=== PATIENT | male | born 1930 | race Caucasian/White ===

== ENCOUNTER 2019-02-20 10:51 | Observation (INO) | payer MEDICARE, OTHER ==
--- NOTE | 2019-02-20 11:26 | RADIOLOGY REPORT (SQ) ---
EXAM DESCRIPTION: CT HEAD WITHOUT COMPLETED DATE/TIME: 02/20/2019 11:16 am REASON FOR STUDY: stroke symptoms COMPARISON: None. TECHNIQUE: Axial images acquired through the brain without intravenous contrast. Images reviewed wi th bone, brain and subdural windows. Additional sagittal and coronal reconstructions were generated. Images stored on PACS. All CT scanners at this facility use dose modulation, iterative reconstruction, and/or weight based d osing when appropriate to reduce radiation dose to as low as reasonably achievable (ALARA). [facility]: Dose Right [facility]: CareDose [facility]: Dose Right [facility]: Teradose 4D [facility]: Neurotrack RADIATION DOSE: CT Rad equipment meets quality standard of care and radiation dose reduction techniq ues were employed. CTDIvol: 53.2 mGy. DLP: 1124 mGy-cm.mGy. LIMITATIONS: None. FINDINGS: VENTRICLES: Prominent. CEREBRUM: No masses. No hemorrhage. No midline shift. Areas of low density in the white matter mos t likely due to chronic micro-vascular ischemic change. No evidence for acute infarction. CEREBELLUM: No masses. No hemorrhage. No alteration of density. No evidence for acute infarction. EXTRAAXIAL SPACES: Age-related involutional change. No fluid collections. No masses. ORBITS AND GLOBE: No intra- or extraconal masses. Normal contour of globe without masses. CALVARIUM: No fracture. PARANASAL SINUSES: No fluid or mucosal thickening. SOFT TISSUES: No mass or hematoma. OTHER: No other significant finding. IMPRESSION: CHRONIC CHANGES OF ATROPHY AND MICROVASCULAR ISCHEMIA. NO ACUTE PROCESS. EVIDENCE OF ACUTE STROKE: NO. COMMENT: Pertinent positive or negative findings of the imaging study reported as a CRITICAL EXAM meena HOLLIDAY DO at11:19 on 02/20/2019. Category of Critical Exam: Code stroke. TECHNICAL DOCUMENTATION: JOB ID: [id number] Quality ID # [id number]: Final reports with documentation of one or more dose reduction techniques (e.g., Au tomated exposure control, adjustment of the mA and/or kV according to patient size, use of iterative reconstruction technique) 2010 [employer]- All Rights Reserved Reading location - IP/workstation name: [email or web address]
--- NOTE | 2019-02-20 11:30 | RADIOLOGY REPORT (SQ) ---
EXAM DESCRIPTION: CHEST SINGLE VIEW COMPLETED DATE/TIME: 02/20/2019 11:22 am REASON FOR STUDY: stroke symptoms COMPARISON: None. NUMBER OF VIEWS: One view. TECHNIQUE: Single frontal radiographic view of the chest acquired. LIMITATIONS: None. FINDINGS: LUNGS AND PLEURA: No opacities, masses or pneumothorax. No pleural effusion. MEDIASTINUM AND HILAR STRUCTURES: No masses. Contour normal. HEART AND VASCULAR STRUCTURES: Heart normal in size. Normal vasculature. BONES: No acute findings. HARDWARE: Battery pack and leads are in place. OTHER: No other significant finding. IMPRESSION: NO SIGNIFICANT RADIOGRAPHIC FINDING IN THE CHEST. TECHNICAL DOCUMENTATION: JOB ID: [id number] 1805 [employer]- All Rights Reserved Reading location - IP/workstation name: [email or web address]
[2019-02-20 11:48] LABS: INTERNATIONAL RATION (INR) 1.09; MEAN CORPUSCULAR HEMOGLOBIN 30.5 pg (27.0-33.4); MEAN CORPUSCULAR HGB CONC 33.3 g/dL (32.0-36.0); MEAN CORPUSCULAR VOLUME 92 fl (80-97); PLATELET COUNT 193 10^3/uL (150-450); PROTHROMBIN TIME 14.7 SEC (11.4-15.4); RED BLOOD COUNT 4.26 10^6/uL (4.35-5.55); RED CELL DISTRIBUTION WIDTH 20.8 % (11.5-14.0); WHITE BLOOD COUNT 16.3 10^3/uL (4.0-10.5)
[2019-02-20 11:49] LABS: PARTIAL THROMBOPLASTIN TIME 38.1 SEC (23.5-35.8)
[2019-02-20 12:05] LABS: ALANINE AMINOTRANSFERASE 22 U/L (21-72); ALBUMIN 3.8 g/dL (3.5-5.0); ALKALINE PHOSPHATASE 72 U/L (38-126); ANION GAP 10 (5-19); ASPARTATE AMINO TRANSFERASE 24 U/L (17-59); BILIRUBIN,DIRECT 0.3 mg/dL (0.0-0.4); BILIRUBIN,TOTAL 0.6 mg/dL (0.2-1.3); BLOOD UREA NITROGEN 41 mg/dL (7-20); CARBON DIOXIDE 25 mmol/L (22-30); CHLORIDE 103 mmol/L (98-107); CREATINE KINASE 44 U/L (55-170); GLUCOSE 98 mg/dL (75-110); POTASSIUM 4.6 mmol/L (3.6-5.0); SODIUM 137.8 mmol/L (137-145); TOTAL PROTEIN 6.4 g/dL (6.3-8.2)
[2019-02-20 12:17] LABS: ABSOLUTE LYMPHOCYTES# (MANUAL) 11.2 10^3/uL (0.5-4.7); ABSOLUTE MONOCYTES # (MANUAL) 0.5 10^3/uL (0.1-1.4); ABSOLUTE NEUTROPHILS# (MANUAL) 4.1 10^3/uL (1.7-8.2); BASOPHILS % (MANUAL) 1 % (0-2); EOSINOPHILS % (MANUAL) 2 % (0-6); LYMPHOCYTES % (MANUAL) 69 % (13-45); MONOCYTES % (MANUAL) 3 % (3-13); SEGMENTED NEUTROPHILS % (MAN) 25 % (42-78); TOTAL CELLS COUNTED 100
[2019-02-20 12:19] LABS: ANISOCYTOSIS 2+; OVALOCYTES SLIGHT; PLATELET COMMENT ADEQUATE; PLATELET LARGE PRESENT; POIKILOCYTOSIS SLIGHT; TOXIC VACUOLATION PRESENT
--- NOTE | 2019-02-20 12:19 | ER Document Report ---
ED Neuro Symptoms/Deficit - General Chief Complaint: S/S of Possible Stroke Stated Complaint: GENERAL WEAKNESS Time Seen by Provider: 02/20/19 11:01 Primary Care Provider: RAGHAV ROOT MD [Primary Care Provider] - Follow up as needed Notes: This is an 88-year-old male to the emergency department chief complaint of tongue feels heavy and speech is slurred. Patient states that this began about 3 hours prior to arrival. Patient on Eliquis for DVTs. Has been on dialysis recently as well. No other major symptoms. Denies any severe headache. No head trauma. No chest pain. - HPI Patient complains to provider of: Facial Droop, Speech Impairment Onset: Just prior to arrival Symptoms are: Intermittent episodes Duration: Better Quality of pain: No pain - Related Data Allergies/Adverse Reactions: gabapentin Allergy (Verified 02/20/19 11:59) quinapril [From Accupril] Allergy (Verified 02/20/19 11:59) Past Medical History - General Information source: Patient, Relative - Social History Smoking Status: Unknown if Ever Smoked Frequency of alcohol use: None Drug Abuse: None Lives with: Spouse/Significant other Family History: Reviewed & Not Pertinent Patient has suicidal ideation: No Patient has homicidal ideation: No - Past Medical History Cardiac Medical History: Reports: Hx Atrial Fibrillation, Hx Hypertension Endocrine Medical History: Reports: Hx Diabetes Mellitus Type 2 Renal/ Medical History: Denies: Hx Peritoneal Dialysis GI Medical History: Reports: Hx Gastroesophageal Reflux Disease Past Surgical History: Reports: Hx Cardiac Surgery - pacemaker, Hx Orthopedic Surgery - left knee Review of Systems - Review of Systems Notes: Constitutional: denies: Chills, Diaphoresis, Fever, Malaise, Weakness EENT: denies: Eye discharge, Blurred vision, Tearing, Double vision, Nose congestion, Nose discharge, Throat swelling, Mouth pain Cardiovascular: denies: Palpitations, Heart racing, Orthopnea, Dyspnea, Chest pain Respiratory: denies: Cough, Hurts to breathe, Wheezing, Shortness of breath Gastrointestinal: denies: Abdominal pain, Diarrhea, Nausea, Vomiting, Black stools, bright red blood in stool Genitourinary: denies: Burning, Dysuria, Discharge, Frequency, Flank pain, Hematuria Musculoskeletal: denies: Joint pain, Joint swelling, Muscle pain, Muscle stiffness, back pain Hematologic/Lymphatic: denies: Anemia, Easy bleeding, Easy bruising, Blood clots Neurological/Psychological: denies: Confusion, Dementia, Depression, Loss of consciousness. Complaining of weakness on the right of side of the face and slurred speech. Skin: No lesions, no masses, no skin breakdown, no abscesses Physical Exam - Vital signs Vitals: Pulse Ox 100 02/20/19 11:38 Interpretation: Normal - General General appearance: Appears well, Alert - HEENT Head: Normocephalic, Atraumatic Eyes: Normal Pupils: PERRL Mucous membranes: Normal Pharynx: Normal Neck: Normal Notes: Slight asymmetry at the nasolabial area on the right. No forehead involvement. Smiling seems quite symmetric. The patient's speech seems mildly slurred and difficult. - Respiratory Respiratory status: No respiratory distress Chest status: Nontender Breath sounds: Normal Chest palpation: Normal - Cardiovascular Rhythm: Regular Heart sounds: Normal auscultation Murmur: No - Abdominal Inspection: Normal Distension: No distension Bowel sounds: Normal Tenderness: Nontender Organomegaly: No organomegaly - Back Back: Normal, Nontender - Extremities General upper extremity: Normal inspection, Nontender, Normal color, Normal ROM, Normal temperature General lower extremity: Normal inspection, Nontender, Normal color, Normal ROM, Normal temperature, Normal weight bearing. No: Angelica's sign - Neurological Neuro grossly intact: Yes Cognition: Normal Orientation: AAOx4 [place] Coma Scale Eye Opening: Spontaneous [place] Coma Scale Verbal: Oriented [place] Coma Scale Motor: Obeys Commands [place] Coma Scale Total: 15 Speech: Normal Cranial nerves: Facial palsy - May be a slight right sided facial palsy. 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 No: Weakness Babinski reflex: Normal (flexor plantar) Sensory: Normal - Psychological Associated symptoms: Normal affect, Normal mood - Skin Skin Temperature: Warm Skin Moisture: Dry Skin Color: Normal Course - Re-evaluation Re-evalutation: 02/20/19 12:[address] was negative. Has a pacemaker so not a candidate for MRI. History of A. fib. On Eliquis so not a candidate for TPA. 02/20/19 13:40 Will admit to [facility] for work up - Vital Signs Vital signs: Temp Pulse Resp BP Pulse Ox 97.7 F 70 24 H 139/81 H 100 02/20/19 11:57 02/20/19 11:55 02/20/19 11:55 02/20/19 11:55 02/20/19 11:55 - Laboratory Result Diagrams: 02/20/19 11:30 02/20/19 11:30 Laboratory results interpreted by me: 02/20/19 02/20/19 11:30 11:30 APTT 38.1 H BUN 41 H Creatinine 2.55 H Est GFR ( Amer) 29 L Est GFR (Non-Af Amer) 24 L Creatine Kinase 44 L - EKG Interpretation by Me EKG shows normal: ST-T Waves Additional EKG results interpreted by me: 02/20/19 12:26 Patient has a paced ventricular rhythm. ED Alteplase Inc/Exc Criteria - Inclusion Criteria: 1: Patient presented to ED within 3 hours of acute ischemic stroke symptom onset? -: Yes 2: Did baseline CT exclude intracranial hemorrhage and/or other risk factors? -: Yes 3: Is the age of the patient 18 years of age or greater? -: Yes : If any of the above questions are answered "NO" then stop, patient is not a candidate for Alteplase, : If all of the above questions are answered "YES" then continue with Exclusion Criteria. - Exclusion Criteria: 1: Is there evidence of intracranial hemorrhage on baseline CT? -: No 2: Is there suspicion of subarachnoid hemorrhage (even if CT negative)? -: No 3: Is there a history of serious head trauma, recent previous stroke or VA within 3 months? -: No 4: Does the patient have a clinical presentation consistent with VA or post-VA pericarditis? -: No 5: Is there history of intracranial hemorrhage? -: No 6: On repeated measurement is Systolic BP greater than 185mmHg or Diastolic BP greater that 110 mmHg and is aggressive treatment needed to reduce blood pressure to these limits (e.g. constant infusion of an anti-hypertensive)? -: No 7: Did the patient awake with stroke symptoms? -: No 8: Has the patient had a lumbar puncture or an arterial puncture at a non-co mpressile site within 7 days? 9: With in the last 14 days did the patient have surgery or major trauma? -: No 10: Is the patient or less than 2 weeks? -: No 11: Was there any active bleeding or acute trauma? -: No 12: Does the patient have intracranial neoplasm, arteriovenous malformation or aneurysm? 13: Does the patient have abnormal glucose (less than 50 or greater than 400m g/dl)? Record glucose in Comment. -: No 14: Patient has rapidly improving symptoms at the time Alteplase is to be Administered. -: No 15: Does the patient have any risks for bleeding, including but not limited to: a.: Current use of Coumadin with PT greater than 15 seconds or INR greater than 1.7. b.: Current use of Pradaxa (Dabigatran). c.: Heparin administereed within the past 48 hours and PTT elevated. d.: Platelet count less than 100,000/mm. e.: Major surgery or serious trauma within 14 days. f.: Gastrointestinal or gynecological urinary bleeding within 14 days. g.: Myocardial Infarction (VA) within 3 months. -: Yes : If the answer to any of the above questions is "YES" then stop, the patient is not a candidate for Alteplase. : If the answer to all of the above questions is "NO" then the patient may be eligible for the Administration of Alteplase. : If the patient is noted to have seizure activity at onset of Stroke symptoms; Consult Neurologist for further evaluation. - The patient is: -: Included and is eligible to receive Alteplase. *Initiate bed placement at higher level of care* Reviewed risks & benefits of thrombolytic therapy: I have reviewed the risks and benefits of thrombolytic therapy with the patient and/or his/her family. -: Excluded and not eligible to receive Alteplase for the above exclusions. --: Yes - On Eliquis -: Excluded and not eligible to receive Alteplase for other reasons (specify in comments): - Diagnosis of TIA: -: Patient presented with transient symptoms that are now resolved and no other neurologic findings are currently present. List symptoms in comments. -: Patient is NOT a candidate for tPA. -: ____(put name in comment) has been consulted for admission and continued evaluation of risk factor assessment. Discharge - Discharge Clinical Impression: TIA (transient ischemic attack) Condition: Good Disposition: ADMITTED INPATIENT Admitting Provider: Glen (Hospitalist) Unit Admitted: Telemetry Instructions: Transient Ischemic Attack ([facility]) Referrals: RAGHAV ROOT MD [Primary Care Provider] - Follow up as needed
[2019-02-20 12:26] LABS: CREATINE KINASE MB 0.84 ng/mL (<4.55); TROPONIN I 0.027 ng/mL
[2019-02-20] MEDS ORDERED: ASPIRIN 325 MG TABLET PO ONE (12:27)
[2019-02-20] MEDS ORDERED: LABETALOL HCL INJ 20 MG/4 ML DISP.SYRIN IV PRN (14:17)
--- NOTE | 2019-02-20 15:03 | PDOC H&P ---
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 He says that he did 2 hours of physical therapy yesterday afternoon and was tired afterwards and so went to bed a little early. He said he slept great but did not wake up this morning when he usually did, and said somebody from his assisted living facility had to come in and wake him up. He said when he woke up he knew that his speech was a little bit different than normal and his tongue felt thick. He said he tried to eat some breakfast and was having some trouble chewing and swallowing and so he stopped eating breakfast and went back to lay down. The staff was able to convince him to come to the ER to get checked out. He complains of some tingling sensation in both of his lower extremities which he says is chronic from his neuropathy, and says that his left side especially his left leg has been weaker than the right side for several months, so this is nothing new. Past Medical History Cardiac Medical History: Reports: Atrial Fibrillation, Hypertension Endocrine Medical History: Reports: Diabetes Mellitus Type 2 GI Medical History: Reports: Gastroesophageal Reflux Disease Past Surgical History Past Surgical History: Reports: Orthopedic Surgery - left knee Social History Lives with: Spouse/Significant other Smoking Status: Unknown if Ever Smoked Family History Family History: Reviewed & Not Pertinent Parental Family History Reviewed: Yes - No history of stroke Children Family History Reviewed: Yes - Hypertension Sibling(s) Family History Reviewed.: Yes - Unknown, but no known history of stroke Medication/Allergy Allergies/Adverse Reactions: gabapentin Allergy (Verified 02/20/19 11:59) quinapril [From Accupril] Allergy (Verified 02/20/19 11:59) Review of Systems All systems: reviewed and no additional remarkable complaints except as stated - All systems were reviewed and were negative except as noted in the HPI Physical Exam Vital Signs: Temp Pulse Resp BP Pulse Ox 97.7 F 70 16 160/80 H 99 02/20/19 11:57 02/20/19 11:55 02/20/19 13:02 02/20/19 13:02 02/20/19 13:02 Intake & Output 02/19/19 02/20/19 02/21/19 06:59 06:59 06:59 Weight 70.307 kg General appearance: PRESENT: no acute distress, cooperative, disheveled, hard of hearing Head exam: PRESENT: atraumatic, normocephalic Eye exam: PRESENT: EOMI, PERRLA. ABSENT: conjunctival injection, nystagmus, scleral icterus Ear exam: PRESENT: normal external ear exam Mouth exam: PRESENT: moist, neck supple Teeth exam: PRESENT: poor dentation Throat exam: ABSENT: post pharyngeal erythema Neck exam: PRESENT: full ROM. ABSENT: carotid bruit, JVD, lymphadenopathy, meningismus, tenderness, thyromegaly Respiratory exam: PRESENT: clear to auscultation jose miguel, symmetrical, unlabored. ABSENT: accessory muscle use, chest wall tenderness, crackles, prolonged ex piratory phas, rhonchi, tachypnea, wheezes Cardiovascular exam: PRESENT: irregular rhythm - Paced rhythm on the monitor with frequent irregular beats Pulses: PRESENT: normal carotid pulses Vascular exam: PRESENT: normal capillary refill GI/Abdominal exam: PRESENT: normal bowel sounds, soft. ABSENT: distended, guarding, rebound, tenderness Extremities exam: ABSENT: clubbing, pedal edema Musculoskeletal exam: PRESENT: normal inspection. ABSENT: deformity Neurological exam: PRESENT: alert, awake, oriented to person, oriented to place, oriented to situation, CN II-XII grossly intact - Except for some presbycusis, motor sensory deficit - He is having some very subtle slurred speech Psychiatric exam: PRESENT: appropriate affect, normal mood Skin exam: PRESENT: dry, warm Results Laboratory Results: 02/20/19 11:30 02/20/19 11:30 02/20/19 02/20/19 11:30 11:30 WBC 16.3 H RBC 4.26 L Hgb 13.0 L Hct 39.0 MCV 92 MCH 30.5 MCHC 33.3 RDW 20.8 H Plt Count 193 Seg Neutrophils % Not Reportable Lymphocytes % Not Reportable Monocytes % Not Reportable Eosinophils % Not Reportable Basophils % Not Reportable Absolute Neutrophils Not Reportable Absolute Lymphocytes Not Reportable Absolute Monocytes Not Reportable Absolute Eosinophils Not Reportable Absolute Basophils Not Reportable Sodium 137.8 Potassium 4.6 Chloride 103 Carbon Dioxide 25 Anion Gap 10 BUN 41 H Creatinine 2.55 H Est GFR ( Amer) 29 L Est GFR (Non-Af Amer) 24 L Glucose 98 Calcium 10.0 Total Bilirubin 0.6 AST 24 ALT 22 Alkaline Phosphatase 72 Total Protein 6.4 Albumin 3.8 02/20/19 02/20/19 11:30 11:30 Creatine Kinase 44 L CK-MB (CK-2) 0.84 Troponin I 0.027 Impressions: Chest X-Ray 02/20/19 11:01 IMPRESSION: NO SIGNIFICANT RADIOGRAPHIC FINDING IN THE CHEST. Head CT 02/20/19 11:01 IMPRESSION: CHRONIC CHANGES OF ATROPHY AND MICROVASCULAR ISCHEMIA. NO ACUTE PROCESS. EVIDENCE OF ACUTE STROKE: NO. Assessment and Plan - Diagnosis (1) TIA (transient ischemic attack) Is this a current diagnosis for this admission?: Yes Plan: Repeat head CT tomorrow because he cannot have an MRI because of his pacemaker. Echocardiogram and carotid Doppler were ordered in the ER. Aspirin and statin. PT, OT, and ST evaluations. (2) Chronic kidney disease Qualifiers: Chronic kidney disease stage: stage 4 (severe) Qualified Code(s): N18.4 - Chronic kidney disease, stage 4 (severe) Is this a current diagnosis for this admission?: Yes Plan: Creatinine is stable in its usual range. We will monitor closely. (3) Pacemaker Is this a current diagnosis for this admission?: Yes Plan: Patient denies a history of an arrhythmia and yet he has a pacemaker. He is chronically anticoagulated but he says it is because he has a history of blood clots. (4) Chronic anticoagulation Is this a current diagnosis for this admission?: Yes Plan: We will continue his Eliquis. - Time Time Spent with patient: 70 minutes Time Spent with patient: 35 or more minutes
--- NOTE | 2019-02-20 17:07 | RADIOLOGY REPORT (SQ) ---
EXAM DESCRIPTION: CAROTID DOPPLER COMPLETED DATE/TIME: 02/20/2019 4:34 pm REASON FOR STUDY: stroke symptoms COMPARISON: None. TECHNIQUE: Grayscale ultrasound, Doppler velocity and spectra, and color Doppler images acquired of the extra-cranial carotid and vertebral arteries. Images stored on PACS. LIMITATIONS: None. FINDINGS: RIGHT CAROTID CCA Velocities: Within normal limits. ICA Velocities Peak systolic 74 cm/s. End diastolic 31 cm/s. Proximal ICA/CCA peak systolic ratio 1.24. Spectra normal. Mild plaque. LEFT CAROTID CCA Velocities: Within normal limits. ICA Velocities Peak systolic 79 cm/s. End diastolic 22 cm/s. Proximal ICA/CCA peak systolic ratio 1.24. Spectra normal. Mild plaque. VERTEBRAL ARTERIES: Antegrade flow. Normal waveforms. SUBCLAVIAN ARTERIES: No finding. OTHER: No other significant finding. IMPRESSION: NO HEMODYNAMICALLY SIGNIFICANT STENOSIS. COMMENT: Quality ID #[id number]: Velocity criteria are extrapolated from the diameter data as defined by t he Society of Radiologists in Ultrasound Consensus Conference. Radiology 2003: 229; 340-346. TECHNICAL DOCUMENTATION: JOB ID: [id number] [place]-72 2010 [employer]- All Rights Reserved Reading location - IP/workstation name: [email or web address]
--- NOTE | 2019-02-20 18:33 | EKG REPORT ---
SEVERITY:- ABNORMAL ECG - A-V DUAL-PACED RHYTHM WITH SOME INHIBITION : Confirmed by: Jorge Lombardi MD 20-Feb-2019 18:32:37
[2019-02-20] MEDS ORDERED: ATORVASTATIN CALCIUM 40 MG TABLET PO SCH (22:00)
[2019-02-21 06:15] LABS: ANION GAP 10 (5-19); BLOOD UREA NITROGEN 41 mg/dL (7-20); CALCIUM 9.7 mg/dL (8.4-10.2); CARBON DIOXIDE 23 mmol/L (22-30); CHLORIDE 104 mmol/L (98-107); CHOLESTEROL 119.04 mg/dL (0-200); GLUCOSE 76 mg/dL (75-110); SODIUM 136.9 mmol/L (137-145); TRIGLYCERIDES 88 mg/dL (<150)
[2019-02-21 06:17] LABS: POTASSIUM 4.7 mmol/L (3.6-5.0)
[2019-02-21 06:26] LABS: DIRECT LDL 57 mg/dL (<100)
[2019-02-21] MEDS ORDERED: ASPIRIN 81 MG TABLET, ENT COATED PO SCH (10:00)
--- NOTE | 2019-02-21 11:26 | XCELERA REPORT ---
[address] [address] Transthoracic Echocardiogram Report Name: JEREMY KARL MATAMOROSARD Radames Age: 88 yrs Gender: Male : 1930 Patient Status: Inpatient Patient Location: [facility]^A Study Date: 02/20/2019 02:34 PM Height: 71 in Weight: 155 lb BSA: 1.9 m2 Reason For Study: stroke symptoms Ordering Physician: ENMA HOLLIDAY Performed By: Jimmie Feldman Interpretation Summary Study quality fair. Lack of contrast opaicifcation limits evaluation for intracardiac mass/ thrombus. Moderate cooncenrtic LVH with normal LVEF at 65-70%. RV systolic function appears normal. Doppler measurements suggest impaired left ventricular relaxation, which is associated with grade I/IV or mild diastolic dysfunction AV leaflets is trileaflet with focal thickening/ calcification noted. There is a trace to mild amount of aortic regurgitation There is a mild amount of mitral regurgitation There is a moderate amount of tricuspid regurgitation There is a mild amount of pulmonic regurgitation Right ventricular systolic pressure is normal. Device lead noted in RA and RV cavities. Bubble study suboptimal but appears positive for shunting acrosss interatrial septum suspicious for PFO. MMode/2D Measurements & Calculations RVDd: 2.5 cm LVIDd: 4.3 cm FS: 39.0 % Ao root diam: 3.3 cm IVSd: 1.3 cm LVIDs: 2.6 cm EDV(Teich): Ao root area: LVPWd: 1.3 cm 84.2 ml ESV(Teich): 8.5 cm2 25.5 ml LA dimension: 3.7 cm EF(Teich): 69.7 % LVLd ap4: 6.9 cm SV(MOD-sp4): EDV(MOD-sp4): 50.0 ml 84.0 ml LVLs ap4: 6.3 cm ESV(MOD-sp4): 34.0 ml EF(MOD-sp4): 59.5 % Doppler Measurements & Calculations MV E max yumiko: MV P1/2t max yumiko: Ao V2 max: LV V1 max P.2 cm/sec 59.5 cm/sec 135.7 cm/sec 2.6 mmHg MV A max yumiko: MV P1/2t: 87.9 msec Ao max PG: LV V1 max: 71.3 cm/sec 7.4 mmHg 80.2 cm/sec MV E/A: 0.77 MVA(P1/2t): 2.5 cm2 MV dec slope: 198.3 cm/sec2 MV dec time: 0.26 sec PA V2 max: PI end-d yumiko: TR max yumiko: MV P1/2t-pr_phl: 87.9 cm/sec 102.8 cm/sec 259.3 cm/sec 87.9 msec PA max PG: TR max P.1 mmHg 26.9 mmHg Left Ventricle There is moderate concentric left ventricular hypertrophy. The left ventricular ejection fraction is normal. LV EF is 65-70%. Doppler measurements suggest impaired left ventricular relaxation, which is associated with grade I/IV or mild diastolic dysfunction. The left ventricular wall motion is normal. Right Ventricle There is a pacemaker lead in the right ventricle. Atria There is a catheter/pacemaker lead seen in the right atrium. The left atrial size is normal. Bubble study suboptimal but appears positive for shunting acrosss interatrial septum suspicious for PFO. Mitral Valve The mitral valve leaflets appear thickened, but open well. There is a mild amount of mitral regurgitation. Aortic Valve The aortic valve is trileaflet. The aortic valve is calcified. There is a peak gradient of 7 mm of Hg. There is a trace to mild amount of aortic regurgitation. Tricuspid Valve There is a moderate amount of tricuspid regurgitation. Right ventricular systolic pressure is normal. Pulmonic Valve The pulmonic valve is not well visualized. There is a mild amount of pulmonic regurgitation. Great Vessels The aortic root is normal size. The inferior vena cava appeared small and collapsed with respiration (RAP 0-5 mmHg). Effusions There is no pericardial effusion. : ENMA HOLLIDAY > Dean Huertas
--- NOTE | 2019-02-21 13:20 | RADIOLOGY REPORT (SQ) ---
EXAM DESCRIPTION: CT HEAD WITHOUT COMPLETED DATE/TIME: 02/21/2019 12:45 pm REASON FOR STUDY: tia COMPARISON: CT brain 02/20/2019 Carotid Doppler 02/20/2019 TECHNIQUE: Axial images acquired through the brain without intravenous contrast. Images reviewed wi th bone, brain and subdural windows. Additional sagittal and coronal reconstructions were generated. Images stored on PACS. All CT scanners at this facility use dose modulation, iterative reconstruction, and/or weight based d osing when appropriate to reduce radiation dose to as low as reasonably achievable (ALARA). [facility]: Dose Right [facility]: CareDose [facility]: Dose Right [facility]: Teradose 4D [facility]: [employer] RADIATION DOSE: CT Rad equipment meets quality standard of care and radiation dose reduction techniq ues were employed. CTDIvol: 53.2 mGy. DLP: 1044 mGy-cm. mGy. LIMITATIONS: None. FINDINGS: VENTRICLES: Normal size and contour. CEREBRUM: No masses. No hemorrhage. No midline shift. No evidence for acute infarction. Minimal sp otty bifrontal and biparietal chronic small vessel ischemic change with low attenuation in the hemisp heric white matter. CEREBELLUM: No masses. No hemorrhage. No alteration of density. No evidence for acute infarction. EXTRAAXIAL SPACES: No fluid collections. No masses. ORBITS AND GLOBE: No intra- or extraconal masses. Normal contour of globe without masses. Post bila teral cataract surgery CALVARIUM: No fracture. PARANASAL SINUSES: No fluid or mucosal thickening. SOFT TISSUES: No mass or hematoma. OTHER: No other significant finding. IMPRESSION: Stable minimal white matter disease. No acute findings EVIDENCE OF ACUTE STROKE: NO. COMMENT: Quality ID # [id number]: Final reports with documentation of one or more dose reduction techniques (e.g., Automated exposure control, adjustment of the mA and/or kV according to patient size, use of iterative reconstruction technique) TECHNICAL DOCUMENTATION: JOB ID: [id number] [employer]- All Rights Reserved Reading location - IP/workstation name: [email or web address]
--- NOTE | 2019-02-21 15:10 | PDOC DISCHARGE SUMMARY ---
General - Admit/Disc Date/PCP Admission Date/Primary Care Provider: 02/20/19 14:29 RAGHAV ROOT MD Discharge Date: 02/21/19 - Discharge Diagnosis (1) TIA (transient ischemic attack) Is this a current diagnosis for this admission?: Yes Summary: Symptoms were mainly limited to some dysarthria and some trouble swallowing, which resolved spontaneously. Neuroimaging was negative for acute stroke. We will continue risk factor modification at home. (2) Chronic kidney disease Is this a current diagnosis for this admission?: Yes Summary: He has stage IV disease and his creatinine actually slowly trended down the whole time he was here. (3) Pacemaker Is this a current diagnosis for this admission?: Yes Summary: We could not get an MRI so we had to do a repeat head CT today, which was negative. (4) Chronic anticoagulation Is this a current diagnosis for this admission?: Yes Summary: He will continue Eliquis at home. 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 - Additional Information Resuscitation Status: Full Code Discharge Diet: Cardiac Discharge Activity: Supervised Activity Home Medications: Acetaminophen [Tylenol 8 Hour] 650 mg PO Q6HP PRN 02/20/19 Amlodipine Besylate [Norvasc 10 mg Tablet] 10 mg PO DAILY 02/20/19 Apixaban [Eliquis 2.5 mg Tablet] 2.5 mg PO Q12 02/20/19 Aspirin [Adult Low Dose Aspirin EC] 81 mg PO DAILY 02/20/19 Calcitriol [Rocaltrol 0.25 mcg Capsule] 0.25 mcg PO DAILY 02/20/19 Carvedilol [Coreg 6.25 mg Tablet] 6.25 mg PO Q12 02/20/19 Cetirizine HCl [Zyrtec 10 mg Tablet] 10 mg PO DAILY 02/20/19 Docusate Sodium [Colace 100 mg Capsule] 100 mg PO BID 02/20/19 Esomeprazole Mag Trihydrate [Nexium] 40 mg PO BID 02/20/19 Febuxostat [Uloric 40 mg Tablet] 40 mg PO DAILY 02/20/19 Fluoxetine HCl [Prozac 20 mg Capsule] 20 mg PO DAILY 02/20/19 Fluticasone Propionate [Flonase Nasal [place] 50 Mcg/[place] 16 gm] 2 sprays NASL DAILY 02/20/19 Folic Acid/Vitamin B Comp W-C [Nephrocaps Softgel] 1 mg PO DAILY 02/20/19 Insulin Glargine,Hum.rec.anlog [Lantus Insulin 100 Unit/1 ml 10 ml] 12 unit SUBCUT QHS 02/20/19 Magnesium Oxide [Magnesium] 400 mg PO BID 02/20/19 Rosuvastatin Calcium [Crestor 5 mg Tablet] 5 mg PO DAILY 02/20/19 History of Present Illness History of Present Illness: BAIRON LUNA JR is a 88 year old male with a history of pacemaker placement, chronic kidney disease, peripheral neuropathy, and 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 He says that he did 2 hours of physical therapy yesterday afternoon and was tired afterwards and so went to bed a little early. He said he slept great but did not wake up this morning when he usually did, and said somebody from his assisted living facility had to come in and wake him up. He said when he woke up he knew that his speech was a little bit different than normal and his tongue felt thick. He said he tried to eat some breakfast and was having some trouble chewing and swallowing and so he stopped eating breakfast and went back to lay down. The staff was able to convince him to come to the ER to get checked out. He complains of some tingling sensation in both of his lower extremities which he says is chronic from his neuropathy, and says that his left side especially his left leg has been weaker than the right side for several months, so this is nothing new. Hospital Course Hospital Course: His symptoms resolved spontaneously. His work-up was negative and unremarkable. He did well for physical therapy. They recommended home health PT with a front wheel walker. He will continue on his aspirin and statin at home. His labs and examination were reassuring and he was discharged in good condition. Physical Exam Vital Signs: Temp Pulse Resp BP Pulse Ox 97.7 F 60 18 130/81 H 100 02/21/19 11:23 02/21/19 12:00 02/21/19 12:00 02/21/19 12:00 02/21/19 12:00 Intake & Output 02/20/19 02/21/19 02/22/19 06:59 06:59 06:59 Intake Total 120 Output Total 400 Balance -280 Weight 70.7 kg General appearance: PRESENT: no acute distress, cooperative, disheveled, hard of hearing Respiratory exam: PRESENT: clear to auscultation jose miguel, symmetrical, unlabored. ABSENT: accessory muscle use, chest wall tenderness, crackles, prolonged expiratory phas, rhonchi, tachypnea, wheezes Cardiovascular exam: PRESENT: irregular rhythm - Paced rhythm on the monitor with frequent irregular beats Pulses: PRESENT: normal carotid pulses Vascular exam: PRESENT: normal capillary refill GI/Abdominal exam: PRESENT: normal bowel sounds, soft. ABSENT: distended, guarding, rebound, tenderness Extremities exam: ABSENT: clubbing, pedal edema Musculoskeletal exam: PRESENT: normal inspection. ABSENT: deformity Neurological exam: PRESENT: alert, awake, oriented to person, oriented to place, oriented to situation Psychiatric exam: PRESENT: appropriate affect, normal mood Skin exam: PRESENT: dry, warm Results Laboratory Results: 02/20/19 11:30 02/21/19 05:09 02/21/19 05:09 Sodium 136.9 L Potassium 4.7 Chloride 104 Carbon Dioxide 23 Anion Gap 10 BUN 41 H Creatinine 2.41 H Est GFR ( Amer) 31 L Est GFR (Non-Af Amer) 26 L Glucose 76 Calcium 9.7 Triglycerides 88 Cholesterol 119.04 LDL Cholesterol Direct 57 VLDL Cholesterol 18.0 HDL Cholesterol 45 02/20/19 02/20/19 11:30 11:30 Creatine Kinase 44 L CK-MB (CK-2) 0.84 Troponin I 0.027 Impressions: Chest X-Ray 02/20/19 11:01 IMPRESSION: NO SIGNIFICANT RADIOGRAPHIC FINDING IN THE CHEST. Carotid Doppler Study 02/20/19 13:27 IMPRESSION: NO HEMODYNAMICALLY SIGNIFICANT STENOSIS. Head CT 02/21/19 12:00 IMPRESSION: Stable minimal white matter disease. No acute findings EVIDENCE OF ACUTE STROKE: NO. Qualifiers - * PATIENT BEING DISCHARGED WITH ANY OF THE FOLLOWING DIAGNOSIS: No Acute Heart Failure - Is this a Heart Failure Patient?: No Plan Time Spent: Greater than 30 Minutes
[2019-02-21 15:14] VITALS: BP 139/69
== END 2019-02-21 14:20 | disposition home or self-care (01) ==
LOC: ER 10:51 → EH 14:29 → INTOOBSV 14:29 → 3W 16:22
PROVIDERS: ADMIT Family Medicine; ATTEND Family Medicine
DX: G45.9 Transient cerebral ischemic attack, unspecified (principal); I12.9 Hypertensive chronic kidney disease with stage 1 through stage 4 chronic kidney disease, or unspecified chronic kidney disease; E11.22 Type 2 diabetes mellitus with diabetic chronic kidney disease; E11.42 Type 2 diabetes mellitus with diabetic polyneuropathy; N18.4 Chronic kidney disease, stage 4 (severe); Z95.0 Presence of cardiac pacemaker; R53.1 Weakness; H91.10 Presbycusis, unspecified ear; I48.91 Unspecified atrial fibrillation; Z86.718 Personal history of other venous thrombosis and embolism; Z79.01 Long term (current) use of anticoagulants; Z79.899 Other long term (current) drug therapy; Z79.82 Long term (current) use of aspirin; Z82.49 Family history of ischemic heart disease and other diseases of the circulatory system
CPT/HCPCS: 93005; 99285; 36415 ×2; 82553; 82550; 85025; 85610; 85730; 80048; 80053; 84484; 80061; 93306; 93880; 71045; 70450 ×2; 93010; 97116; 97162; G0378 ×3; A9270 ×2; J3490 ×2